=== PATIENT | male | born 1940 | race Caucasian/White ===

== ENCOUNTER → 2016-04-13 | Outpatient (CLI) | payer OTHER, BC | LOC: MMPC 11:11 | PROVIDERS: ATTEND Internal Medicine | DX: K22.70 Barrett's esophagus without dysplasia (principal); K21.9 Gastro-esophageal reflux disease without esophagitis; R13.14 Dysphagia, pharyngoesophageal phase; K22.719 Barrett's esophagus with dysplasia, unspecified; R29.898 Other symptoms and signs involving the musculoskeletal system; R22.2 Localized swelling, mass and lump, trunk | CPT/HCPCS: 99214; G0463 ==

== ENCOUNTER → 2016-05-24 | Outpatient (CLI) | payer OTHER, BC ==
--- NOTE | 2016-05-24 11:36 | DI ---
XR ESOPHAGRAM,05/24/2016 9:11 AM: Clinical History: Dysphagia. Previous Exam: None at this facility. Findings: Multiple images from an esophagram are obtained, and demonstrate normal course and caliber of the eso phagus. There is some irregularity of the esophagus with some poor motility. There is also delayed pa ssage through the gastroesophageal junction. The patient was unable to tolerate crystals and therefor e, the upper stomach was not well evaluated. There is no evidence of Zenker's diverticulum. There was some enlargement of the performed sinuses wo rse on the left than on the right. There was some reflux seen during the exam to the level of the midesophagus. A pacemaker was noted. The lungs appear clear. There were some mild degenerative changes of the cervi jesse spine. Impression: 1. No evidence of Zenker's diverticulum. 2. Patulous bilateral performed sinuses worse on the left than the right. 3. Presbyesophagus. 4. Slight delayed passage of the distal esophageal sphincter most consistent with patient's history o f peptic strictures.
== END ==
LOC: RAD 09:07
PROVIDERS: ATTEND Internal Medicine Gastroenterology
DX: R13.10 Dysphagia, unspecified (principal)
CPT/HCPCS: 74220

== ENCOUNTER → 2016-08-16 | Outpatient (CLI) | payer OTHER, BC | LOC: MMPC 11:11 | PROVIDERS: ATTEND Internal Medicine | DX: I10 Essential (primary) hypertension (principal); K21.9 Gastro-esophageal reflux disease without esophagitis; R13.14 Dysphagia, pharyngoesophageal phase; I25.2 Old myocardial infarction; Z98.1 Arthrodesis status; Z95.1 Presence of aortocoronary bypass graft; Z95.0 Presence of cardiac pacemaker | CPT/HCPCS: 99213; G0463 ==

== ENCOUNTER 2017-03-21 05:42 | Observation (INO) ==
[2017-03-21] MEDS ORDERED: Lactated Ringers 1,000 ML PRIMARY IV ONE (05:57)
[2017-03-21] MEDS ORDERED: LIDOCAINE W/ SODIUM BICARB 0.5 ML SYR ONE (05:57)
[2017-03-21] MEDS ORDERED: ceFAZolin Inj 2gm (Premix) 2 GM/50 ML BAG IV ONE ×2 (05:57→08:00)
[2017-03-21] MEDS ORDERED: Lactated Ringers 1,000 ML PRIMARY IV SCH (06:00)
[2017-03-21] MEDS ORDERED: LIDOCAINE W/ SODIUM BICARB 0.5 ML SYR SUBD ONE (06:00)
[2017-03-21] MEDS ORDERED: LIDOCAINE 2%/ EPI 1:200,000 - 20 ML VIAL ONE (07:14)
[2017-03-21] MEDS ORDERED: fentaNYL Inj 250 MCG/5 ML VIAL ONE (07:15)
[2017-03-21] MEDS ORDERED: BUPivacaine Inj 0.5% PF (5mg/ml) 30ml vial ONE (07:15)
[2017-03-21] MEDS ORDERED: MIDAZOLAM 5 MG/1 ML ONE (07:15)
--- NOTE | 2017-03-21 07:36 | CRNA.PROCE ---
Nerve Block Documentation - - Type of Nerve Block Used: Right Interscalene Block Position for Nerve Block: Supine Moniters Used During Block: EKG, SPO2, NIBP Oxygen Supplemented: Yes Sedation Used - Enter Amount in Comment Field [ANES.SEDAT]: Midazolam (mg): Yes (2mg), Fentanyl (mcg): Yes (100mcg) Skin Prep Used: ChloroPrep Draped: No Technique: Nerve Stimulator Nerve Block Needle Used: Metatomix 50 mm Stimulation Hz: 2 Stimulation Staring mA: 1.2 Stimulation Ending mA: 0.4 Local Anesthetic - Enter Amt in Comment Field [ANES.LOCNB]: 0.5 % Bupivicaine with Epinephrine 1:200,000 (mL): Yes (20ml), 2 % Xylocaine with Epinephrine 1: 200,000 (mL): Yes (20ml) Additives to Nerve Blocks: Dexamethasone (mg): Yes (8mg(2ml)) - - PreOp Block : Time In: 07:20 PreOp Block : Time Out: 07:35 Anesthesia Time - Other Weight: 58.06 kg Height: 5 ft 2 in Body Mass Index (BMI): 23.3
[2017-03-21] MEDS ORDERED: PROPOFOL 10 MG/1 ML (200 MG/20 ML) VIAL IV ONE (07:39)
[2017-03-21 07:40] LABS: BLOOD UREA NITROGEN 18 mg/dL (7-22)
[2017-03-21] MEDS ORDERED: BUPivacaine Inj 0.5% PF (5mg/ml) 30ml vial INFIL SCH ×2 (08:00→11:45)
[2017-03-21] MEDS ORDERED: ePHEDrine Inj 50 MG/ML AMP ONE (08:27)
--- NOTE | 2017-03-21 08:52 | EKG ---
[address] [address] Measurements Intervals [place] Rate: 62 P: 110 WA: 258 QRS: 229 QRSD: 148 T: -45 QT: 427 QTc: 433 Interpretive Statements ELECTRONIC ATRIAL PACEMAKER WITH VPCS MARKED RIGHT AXIS DEVIATION [QRS AXIS > 100] INTRAVENTRICULAR CONDUCTION DELAY ANTERIOR MYOCARDIAL INFARCTIO Compared to ECG 03/10/2017 10:50:27 no significant change Electronically Signed On 03-21-17 14:08:30 MST by Maurilio Choudhary [email or web address]
[2017-03-21] MEDS ORDERED: BUPivacaine Inj 0.25% PF - 10ml vial ONE (10:03)
[2017-03-21] MEDS ORDERED: Sodium Chloride 0.9% vial 10 ML ONE (10:15)
--- NOTE | 2017-03-21 10:45 | CRNA.PROGR ---
Anesthesia Recovery Phase I - Post Anesthesia Evaluation Patient's Condition on Arrival in Phase I: Stable Pain Level: 0
[2017-03-21] MEDS ORDERED: NORMAL SALINE 10 ML SYRINGE FLUSH IVP PRN ×2 (10:50→12:04)
[2017-03-21] MEDS ORDERED: HYDROmorphone 2 MG/1 ML IVP PRN (10:50)
[2017-03-21] MEDS ORDERED: ONDANSETRON 4 MG/2 ML VIAL IVP PRN ×2 (10:50→12:04)
--- NOTE | 2017-03-21 10:50 | CRNA.PROGR ---
Anesthesia Time - - Start date: 03/21/17 End date: 03/21/17 - Procedure/Recovery Time Anesthesia : Time In: 07:54 Anesthesia : Time Out: 10:43 Anesthesia : Total Time: 169 - Block Time PreOp Block : Time In: 07:20 PreOp Block : Time Out: 07:35 PreOp Block : Total Time: 15 - Total Anesthesia Time Total Anesthesia Time (minutes): 184 - Other Weight: 58.06 kg Height: 5 ft 2 in Body Mass Index (BMI): 23.3 Physical Status: P2 Anesthesia Type: General Anesthesia : LMA
--- NOTE | 2017-03-21 11:02 | ORTHO.OP ---
Surgery Date: 03/21/17 Preoperative Diagnosis: Full-thickness large rotator cuff tear right shoulder # 2 impingement syndrome Postoperative Diagnosis: Same Procedure: Repair rotator cuff tear right shoulder #2 subacromial decompression bursectomy Surgeon: Inge Mckenzie MD Resident Care Supervisor: RODRIGO Aguilar Anesthesia Provider: Kurtis Boucher CRNA Anesthesia Type: General Estimated Blood Loss (mL): 30 Fluids: 1800 mL crystalloid Pathology: None Findings: Large retracted full-thickness cuff tear supra and infraspinatus tendons Complications: None Operative Summary: Extubated and taken to recovery room in stable condition.
[2017-03-21] MEDS ORDERED: MORPHINE SULFATE 2 MG/1 ML IVP PRN (12:04)
[2017-03-21] MEDS ORDERED: HYDROcodone-APAP 7.5 MG-325 MG TABLET PO PRN (12:04)
[2017-03-21] MEDS ORDERED: LIDOCAINE HCL 2 % 10 ML JELLY URO-JECT TOPICAL PRN (12:04)
[2017-03-21] MEDS ORDERED: MORPHINE SULFATE 2 MG/1 ML IV PRN (12:12)
[2017-03-21] MEDS ORDERED: MORPHINE SULFATE 4 MG/1 ML IV PRN (12:12)
[2017-03-21] MEDS ORDERED: MORPHINE SULFATE 10 MG/1 ML IV PRN (12:12)
--- NOTE | 2017-03-21 12:42 | PDOC ---
HPI - History of Present Illness History of Present Illness: This very nice 76-year-old gentleman who is admitted for right rotator cuff repair he is status post surgery was called by orthopedic surgery to admit the patient overnight for observation and considering his history of coronary artery disease patient is stable has no chest pain no nausea no vomiting and has no other complaints Past Medical History Medical History: Coronary artery disease, pacemaker, hypertension, hypercholesterolemia, GERD Surgical History: Right rotator cuff repair Tobacco Use: Former Smoker In the Past 12 Months, Have Used or Abuse Any of the Following Substance: None Medication / Allergies Home Medications: Home Medications Medication Instructions Recorded Confirmed Type enalapril maleate 5 mg tablet 5 mg PO DAILY #90 tab 01/23/17 03/21/17 Rx simvastatin 20 mg tablet 20 mg PO QHS #90 tab 01/23/17 03/21/17 Rx aspirin 81 mg tablet,delayed 81 mg PO DAILY tab 02/15/17 03/21/17 History release carvedilol 6.25 mg tablet 6.25 mg PO BID tab 02/15/17 03/21/17 History omeprazole 40 mg capsule,delayed 40 mg PO BID cap 03/14/17 03/21/17 History release Allergies/Adverse Reactions: Allergies 3 Allergy/AdvReac Type Severity Reaction Status Date / Time No Known Allergies Allergy Verified 03/21/17 12:06 Review of Systems - Review of Systems All Systems: Reviewed & No Additional Complaints Except as Stated - Respiratory Respiratory: DENIES: Negative System Review, Cough, Sputum, Dyspnea At Rest, Dyspnea with Exertion, Pleuritic Pain, Hemoptysis, Wheezing, Other, See HPI - Cardiovascular Cardiovascular: DENIES: Negative System Review, Chest Pain, Edema, Syncope, Palpitations, Orthopnea, Paroxysmal Nocturnal Dyspnea, Other, See HPI - Gastrointestinal Gastrointestinal / Abdominal: DENIES: Negative System Review, Nausea, Vomiting, Diarrhea, Constipation, Abdominal Pain, Bloody Stool, Poor Appetite, Heartburn, Regurgitation, Bloating, Lactose Intolerance, Melena, Bright Red Blood per Rectum, Other, See HPI Exam - Vitals Vital Signs: Vital Signs Temperature 97.8 F Pulse Rate 69 Respiratory Rate 17 Blood Pressure [Left Arm] 181/85 Blood Pressure 136/78 Pulse Ox 100 Oxygen Flow Rate 2 Oxygen Delivery Method Nasal Cannula Height 5 ft 2 in Weight 128 lb - General General Appearance: No Acute Distress, Cooperative - Head Head Exam: Normal Inspection, Normocephalic, Atraumatic - Eye Eye Exam: POSITIVE: Normal Appearance, PERRL, EOMI, No Scleral Icterus - Respiratory Respiratory Exam: POSITIVE: Clear to Auscultation - Bilaterally, Breathing Non Labored, Normal To Percussion, Normal to Percussion and Palpation - Cardiovascular Cardiovascular Exam: POSITIVE: RRR, No Murmur, No Clicks, No Gallops, No Rubs, PMI Non-Displaced - GI/Abdominal GI/Abdominal Exam: POSITIVE: Normal Bowel Sounds, Non Tender, Non Distended, Soft, No Masses, No Hepatomegaly, No Splenomegaly, No Organomegaly - Extremities Extremities Exam: POSITIVE: Normal Inspection, Full ROM, Normal Capillary Refill , No Clubbing Present, No Edema Present, No Cyanosis Present, Negative Jet's sign, Dosalis Pedis Pulses - Stong & Regular Additional Extremities Exam Details: Right arm in the sling Results - Labs CBC and BMP: 03/21/17 07:25 Assessment and Plan - Patient Problems (1) S/P rotator cuff repair Current Visit: Yes Status: Acute Comment: Defer to orthopedic surgery Code(s): Z98.890 - Other specified postprocedural states (2) CAD (coronary artery disease) Current Visit: No Status: Chronic Comment: Continue current home medication discussed with nursing and pharmacy, enalapril, simvastatin carvedilol Code(s): I25.10 - Atherosclerotic heart disease of [place] coronary artery without angina pectoris Qualifiers: (3) Pacemaker Current Visit: No Status: Chronic Onset Date: 01/13/16 Comment: Stable Code(s): Z95.0 - Presence of cardiac pacemaker
[2017-03-21] MEDS: OMEPRAZOLE 40 MG CAPSULE PO SCH ×2 (13:34→20:35)
[2017-03-21] MEDS: CARVEDILOL 6.25 MG TABLET PO SCH ×2 (13:34→20:34)
[2017-03-21] MEDS: ENALAPRIL 10 MG TABLET PO SCH (13:35)
[2017-03-21] MEDS ORDERED: Sodium Chloride 0.9% 0 ML IV ONE (15:42)
[2017-03-21] MEDS ORDERED: ceFAZolin Inj 2 GM in Sodium Chloride 0.9% 100 ML IV SCH (16:00)
[2017-03-21] MEDS: ceFAZolin Inj 2gm (Premix) 2 GM/50 ML BAG IV SCH ×2 (16:29→23:58)
[2017-03-21] MEDS ORDERED: OMEPRAZOLE 40 MG CAPSULE PO SCH (21:00)
[2017-03-21] MEDS ORDERED: CARVEDILOL 6.25 MG TABLET PO SCH (21:00)
[2017-03-21] MEDS ORDERED: Simvastatin Tab 20 MG TAB PO SCH (21:00)
[2017-03-22 05:20] VITALS: O2SAT 93
[2017-03-22] MEDS: OMEPRAZOLE 40 MG CAPSULE PO SCH (06:59)
--- NOTE | 2017-03-22 07:57 | ORTHO.PROG ---
Last Taken Vital Signs: Vital Signs - Last Taken Temperature 97.5 F 03/22/17 05:00 Pulse Rate 71 03/22/17 07:00 Respiratory Rate 18 03/22/17 06:40 Blood Pressure 147/72 03/22/17 05:00 Pulse Ox 93 03/22/17 05:00 Subjective: Patient sitting up in bed eating breakfast. Does not seem to be having much pain. His brace is not fitting correctly. We'll try to get that fixed. Objective: Vital signs are stable patient is afebrile. Right upper extremity dressing is clean and dry. Neurovascular exam intact. Assessment: Impression: Rotator cuff repair. Postoperative day 1. Seems to be doing well. Plan: Plan: Is to take his pain pump out on Monday. I will arrange to do it myself. Probable discharge today by Dr. Tomlin.
[2017-03-22] MEDS ORDERED: ENALAPRIL 10 MG TABLET PO SCH ×2 (09:00→12:45)
[2017-03-22] MEDS: ENALAPRIL 10 MG TABLET PO SCH (09:12)
[2017-03-22] MEDS: CARVEDILOL 6.25 MG TABLET PO SCH (09:15)
--- NOTE | 2017-03-22 09:46 | CRNA.PROGR ---
Anesthesia Note - Progress Notes Anesthesia Progress Note: Post OP Anesthesia Note Pt is laying in bed, complaining of mild nausea, has not had much of appetite. He also is having trouble getting urine to flow, i suspect is residual from the SAB. Patient states that his pain is well under control. Current VS are stable. Vital Signs - Last Taken Temperature 97.5 F 03/22/17 05:00 Pulse Rate 71 03/22/17 07:00 Respiratory Rate 18 03/22/17 06:40 Blood Pressure 147/72 03/22/17 05:00 Pulse Ox 93 03/22/17 05:00
--- NOTE | 2017-03-22 10:01 | DCSUMMARY ---
Hospitalization Summary Hospital Course: Final Discharge Diagnosis: Current Visit Problems Problem Status Onset Code S/P rotator cuff repair Acute Z98.890 Diagnostic Data, Laboratory Data, and Procedures of Signifigance: History and Physical pertinent to Admission: Course of Hospitalization: This is a very nice 76-year-old gentleman with past medical history of A. fib and hypertension he was admitted overnight for observation to make sure the telemetry and his A. fib and hypertension with stay stable after the rotator cuff repair. The patient did great and no changes on telemetry no chest pain nausea vomiting I discussed the case with the orthopedic surgery he will be discharged home in stable and improved condition with his usual medication and a prescription for some pain control Dr. Mckenzie will go to his house to take out the pain pump that he has an. Patient understands and agrees the above plan On the date of discharge, the patient was examined: Gen.: No acute distress, alert, nontoxic Heart: Regular rate and rhythm, no murmurs, clicks, gallops, or rubs Lungs: Clear to auscultation bilaterally, breathing is nonlabored Abdomen/GI: Normal tones on auscultation, soft, nontender, nondistended Musculoskeletal/extremities: No clubbing, cyanosis, or edema Vitals reviewed and are listed below Vital Signs (24 hrs) Temp Pulse Pulse Resp Resp BP BP 03/22/17 07:00 71 03/22/17 06:40 18 03/22/17 05:00 97.5 F 73 20 147/72 03/22/17 03:00 64 03/22/17 00:36 97.2 F 60 20 129/64 03/21/17 23:00 65 03/21/17 20:30 97.6 F 75 22 123/69 03/21/17 19:00 66 03/21/17 17:00 169/86 03/21/17 16:50 97.6 F 60 16 188/97 03/21/17 14:06 70 03/21/17 13:00 97.5 F 69 18 182/88 03/21/17 12:05 97.5 F 69 18 182/88 03/21/17 11:30 96.9 F 70 20 175/90 03/21/17 11:15 67 18 165/78 03/21/17 11:06 97.8 F 64 16 150/79 03/21/17 11:04 69 10 L 03/21/17 11:02 97.1 F 66 15 136/78 03/21/17 11:00 63 24 03/21/17 10:58 68 23 144/78 03/21/17 10:56 67 16 03/21/17 10:54 72 16 03/21/17 10:52 72 24 140/77 03/21/17 10:50 70 27 H 03/21/17 10:48 74 24 144/77 03/21/17 10:46 71 15 144/77 03/21/17 10:42 97.4 F 81 27 H 158/84 Pulse Ox 03/22/17 07:00 03/22/17 06:40 03/22/17 05:00 93 03/22/17 03:00 03/22/17 00:36 90 03/21/17 23:00 03/21/17 20:30 91 03/21/17 19:00 03/21/17 17:00 03/21/17 16:50 93 03/21/17 14:06 03/21/17 13:00 96 03/21/17 12:05 96 03/21/17 11:30 98 03/21/17 11:15 98 03/21/17 11:06 99 03/21/17 11:04 97 03/21/17 11:02 97 03/21/17 11:00 97 03/21/17 10:58 97 03/21/17 10:56 97 03/21/17 10:54 98 03/21/17 10:52 98 03/21/17 10:50 98 03/21/17 10:48 98 03/21/17 10:46 97 03/21/17 10:42 97 Assessment and Plan: 1. As per discharge assessments above 2. Disposition: Home 3. Condition on discharge, stable and improved. 4. Diet: regular diet 5. Activities: resume normal activities 6. Follow-Up: 1. PCP Dr. Mckenzie and amps 2. 7. Medications at the Time of Discharge: Home Medications Medication Instructions Recorded Confirmed Type enalapril maleate 5 mg tablet 5 mg PO DAILY #90 tab 01/23/17 03/21/17 Rx simvastatin 20 mg tablet 20 mg PO QHS #90 tab 01/23/17 03/21/17 Rx aspirin 81 mg tablet,delayed 81 mg PO DAILY tab 02/15/17 03/21/17 History release carvedilol 6.25 mg tablet 6.25 mg PO BID tab 02/15/17 03/21/17 History oxycodone-acetaminophen 7.5 mg-325 See Label Instructions PO Q6H PRN 03/22/17 Rx mg tablet #45 tab 3 Generic Name Dose Route Start Last Admin Trade Name Freq PRN Reason Stop Dose Admin Hydrocodone Bitart/Acetaminophen 1 - 2 tab 03/21/17 12:04 [place] 7.5/325 Tab PO Q4H PRN Pain Bupivacaine HCl 1,500 mg 03/21/17 11:45 Sensorcaine Inj 0.5% Pf INFIL .Per Pump GIORGIO Protocol Carvedilol 6.25 mg 03/21/17 12:45 03/22/17 09:15 Coreg PO 6.25 mg BID GIORGIO Administration Enalapril Maleate 5 mg 03/21/17 13:30 03/22/17 09:12 Vasotec PO 5 mg DAILY GIORGIO Administration Lidocaine HCl 10 ml 03/21/17 12:04 Xylocaine Uro-Ject 2% TOPICAL ONCE PRN Discomfort catheter insertion Morphine Sulfate 1 - 2 mg 03/21/17 12:12 Morphine Inj IV Q2H PRN MODERATE TO SEVERE PAIN Morphine Sulfate 3 - 4 mg 03/21/17 12:12 Morphine Inj IV Q2H PRN MODERATE TO SEVERE PAIN Morphine Sulfate 5 mg 03/21/17 12:12 Morphine Inj IV Q2H PRN MODERATE TO SEVERE PAIN Omeprazole 40 mg 03/21/17 12:45 03/22/17 06:59 Prilosec PO 40 mg BID@0630,1700 GIORGIO Administration Ondansetron HCl 4 mg 03/21/17 12:04 Zofran Inj IVP Q4H PRN NAUSEA / VOMITING Simvastatin 20 mg 03/21/17 21:00 03/21/17 20:34 Zocor PO 20 mg BEDTIME GIORGIO Administration Sodium Chloride 5 - 20 ml 03/21/17 12:04 03/21/17 23:58 Saline Flush IVP 10 ml BID PRN Administration Flush 8. Time, care, counseling and coordination of care for this discharge is greater than 30 minutes. Exam - Vitals Vital Signs: Vital Signs Temperature 97.5 F Temperature Source Temporal Artery Scan Pulse Rate [Pulse Oximeter] 73 Pulse Rate 71 Respiratory Rate [Right 18 shoulder] Respiratory Rate 20 Blood Pressure [Left Arm] 147/72 Blood Pressure 175/90 Pulse Ox 93 Oxygen Flow Rate 1 Oxygen Delivery Method Room Air Height 5 ft 2 in Weight 133 lb 12.8 oz Patient Problems - Patient Problem List (1) S/P rotator cuff repair Current Visit: Yes Status: Acute Code(s): Z98.890 - Other specified postprocedural states Category: Surgical (2) CAD (coronary artery disease) Current Visit: No Status: Chronic Comment: Post 5 vessel bypass 2003 with pacemaker implant 2016. Denies exertional chest pain but does have HAYS with limited exercise related to frequent falls. Code(s): I25.10 - Atherosclerotic heart disease of [place] coronary artery without angina pectoris Qualifiers: Category: Medical (3) Pacemaker Current Visit: No Status: Chronic Onset Date: 01/13/16 Code(s): Z95.0 - Presence of cardiac pacemaker Category: Medical
--- NOTE | 2017-03-22 10:36 | CRNA.PROGR ---
Anesthesia Note - Progress Notes Anesthesia Progress Note: Post OP Progress note Pt is sitting up at bed side dressed in regular clothes. He states that his pain is well under control and it appears as though the ISB has resolved and the pain pump is controlling pain well. He is having some problems tolerating swallowing , but, this is related to a preexisting esophogeal stricture. Pt tolerated the anesthetic well. Current VS are stable. Vital Signs - Last Taken Temperature 97.5 F 03/22/17 05:00 Pulse Rate 71 03/22/17 07:00 Respiratory Rate 18 03/22/17 06:40 Blood Pressure 147/72 03/22/17 05:00 Pulse Ox 93 03/22/17 05:00
[2017-03-22 10:57] VITALS: BP 172/91; RESP 20; TEMP 97.3
--- NOTE | 2017-03-23 09:19 | OT AM DAY ---
Diagnosis : Right RTC Infra/Supra/PEDRITO AM - Occupational Therapy O: The patient was instructed in activities of daily living including dressing and bathing, as well as shoulder do's and don'ts. The patient was issued a shoulder sling and instructed in its proper use and care. P: No further therapy is indicated at this time. The patient will begin outpatient physical therapy. MTDD
== END 2017-03-22 10:45 | disposition home or self-care (01) ==
LOC: OR 05:42 → MED/SURG 05:42
PROVIDERS: ADMIT Orthopaedic Surgery; ATTEND Internal Medicine

== ENCOUNTER 2018-07-25 13:50 | Inpatient (IN) ==
--- NOTE | 2018-07-25 13:57 | PDOC ---
Gen Adult / Medical Screen HPI - General Chief Complaint: General Medical Stated Complaint: not eating for 4 months/unable to keep food down Date Seen by Provider: 07/25/18 Time Seen by Provider: 13:57 Source: POSITIVE: Patient, RN/MD Exam Limitations: POSITIVE: No limitations Nurse's Notes Reviewed & Considered: Yes - Indicators Severe Pain (Greater than 5/10 Reported): No Chest or Abdominal Pain: No Inability to Walk: No Pt Reports Active High Risk Cond. (TB/Hepatitis/HIV/Chemo): No Abnormal Mental Status: No - History of Present Illness Initial Comments: This is a well-developed, anorexic, 77-year-old male, who was sent to the emergency room by his primary care provider because of recent 50 pound weight loss. Over the last 4 months patient has lost an excess of 50 pounds without dieting. He does have dysphagia and barium swallow study shows some sort of soft tissue mass in the hypopharynx. ENT review stated on clinical exam no mass was evident. CT of his head performed in the last few months with negative for acute intracranial abnormalities. CT scan of his cervical spine showed what appeared to be a soft tissue mass of the hypopharynx. CT scan of his chest showed no acute abnormalities. Patient states that he has a very difficult time eating or drinking with multiple episodes of aspiration pneumonia and inability to swallow his medications. He states that just this last week he took his medications 1 morning and the next morning he coughed up one of the pills. Presently he has a low-grade fever but denies headache, no runny nose, no cough, no shortness of breath, no nausea vomiting or diarrhea, no hematuria dysuria, no myalgias or arthralgias. In 2013 patient wait 195 pounds. He states at home today he weighed 98 pounds. Timing: REPORTS: Unknown Duration: Unknown Similar Symptoms Previously: Yes Recent Care Received: REPORTS: Recently Seen, Treated by MD Any Prior Injuries Related to Current Complaint?: No - Patient Home Medications Home Medications: Home Medications carvedilol 6.25 mg tablet 6.25 mg PO BID #180 tab 05/29/18 esomeprazole magnesium 20 mg capsule,delayed release 40 mg PO QDAY #180 cap 05/29/18 aspirin 81 mg tablet,delayed release 81 mg PO QDAY tab 05/31/18 enalapril maleate 5 mg tablet 5 mg PO QDAY tab 05/31/18 cholecalciferol (vitamin D3) 1,000 unit tablet 1,000 unit PO QDAY #30 tab 06/08/18 mecobalamin (vitamin B12) 1,000 mcg disintegrating tablet,sublingual 1,000 mcg SL QDAY #90 tab 06/11/18 gabapentin 100 mg capsule 100 mg PO QDAY #180 cap 06/25/18 - Patient Allergies Allergies/Adverse Reactions: Allergies Allergy/AdvReac Type Severity Reaction Status Date / Time No Known Allergies Allergy Verified 07/25/18 18:02 Past Medical History - heen HEENT History: Cataracts Additional HEENT History: full upper dentures Cardiovascular History: Hypertension, Previous OH, CAD, Pacemaker Respiratory History: Denies History Gastrointestinal History: GERD, Other (please comment) Additional Gastrointestinal History: Dysphagia, gall bladder removed Genitourinary History: Kidney Stones Endocrine History: Denies History Musculoskeletal History: Arthritis, Back Pain, Osteoarthritis, Other (please comment) Prosthesis or Implant: Yes Additional Musculoskeletal History: LEFT FOOT DROP, history of a lot of falls, c/o tailbone pain, 3 johnson in left foot Neurological History: Denies History Blood Disorders: Denies History Psychiatric History: Denies History Cancer History: Denies History History of MDRO: No In the Past 12 Months, Have Used or Abuse Any Substance: None Type / Date of Surgery: CABG X5/ Pacemaker insertion/ shawn/ Lumbar fusion Anesthesia Reactions: No Significant Family History: Cancer Additional Family History: father had OH ROS - Limitations ROS Limitations: No Limitations Constitution: REPORTS: Fever Cardiovascular: REPORTS: Denies Cardiac Symptoms Respiratory: REPORTS: Denies Resp Symptoms Neurological: REPORTS: Denies Neuro Symptoms Gastrointestinal: REPORTS: Denies GI Symptoms Endocrine: REPORTS: Denies Symptoms Musculoskeletal: REPORTS: Denies MS Symptoms Genitourinary: REPORTS: Denies Symptoms Eyes: REPORTS: Denies Symptoms ENT: REPORTS: Denies Symptoms Skin: REPORTS: Denies Skin Symptoms Lympathic: REPORTS: Denies Lympathic Symptoms Immunologic: POSITIVE: Denies Symptoms Psychiatric: POSITIVE: Denies Psych Symptoms Gen Adult/Medical Screen Exam - General Appearance General Appearance: POSITIVE: Alert, Cooperative, No Acute Distress, No Evidence of Trauma - HEENT HEENT: POSITIVE: Head Inspection Nml, Eyes Inspection Nml, Ears Inspection Nml, Nose Inspection Nml, Oral/Dental Inspect. Nml, Pharynx Inspect. Nml, PERRL, EOMI - Pupils Pupil Size: 5 mm: Bilateral - Neck Neck: POSITIVE: Normal Inspection - Respiratory Respiratory: POSITIVE: No Respiratory Distress, Breath Sounds Normal, Chest Non- Tender - Cardiovascular Cardiovascular: POSITIVE: Regular Rate & Rhythm, No Murmur, No Gallop, PMI Norm al - Abdomen Abdomen: Soft: (All Quadrants), Normal Bowel Sounds: (All Quadrants), Denies Tenderness: (All Quadrants), No Splenomegaly: (All Quadrants), No Hepatomegaly: (All Quadrants), No Guarding: (All Quadrants), No Rebound: (All Quadrants), No Palpable Pulse: (All Quadrants), No Palpabale Mass: (All Quadrants), No Distention: (All Quadrants), No Rigidity: (All Quadrants) Additional Abdominal Details: Patient is very thin with no abdominal fat present no masses are palpated no tenderness is noted. - Back Back: POSITIVE: Normal Inspection - Neurological / Psychological Mental Status: POSITIVE: Mood Normal, Affect Normal Orientation: POSITIVE: Oriented x 3 - Skin Skin: POSITIVE: Normal Color, Warm, Dry, No Rash - Extremities Extremity: Non-Tender: (All Extremities), Normal ROM: (All Extremities), Normal Inspection: (All Extremities), Pelvis Stable: (All Extremities) Procedures - Laceration/Wound Repair Did patient have a laceration repair: No Gen Adlt/Medical Scrn Progress - Results Reviewed by me Xrays/CTs/US Reviewed by me: Yes Discussed with Radiologist: Yes Lab Results Reviewed by Me: Yes CBC and BMP: 07/25/18 14:07 07/25/18 14:07 Lab Results:: Laboratory Results 07/25/18 07/25/18 07/25/18 14:07 14:07 14:07 WBC 6.45 RBC 4.02 L Hgb 13.2 L Hct 37.1 L MCV 92.3 H MCH 32.8 H MCHC 35.6 RDW Std Deviation 48.7 RDW Coeff of Ignacio 14.9 H Plt Count 270 MPV 10.3 Neutrophils % (Manual) 68 Band Neutrophils % 0 Lymphocytes % (Manual) 29 Monocytes % (Manual) 3 Eosinophils % (Manual) 0 Basophils % (Manual) 0 Metamyelocytes % Not Reportable Myelocytes % Not Reportable Promyelocytes % Not Reportable Blast Cells Not Reportable WBC Morphology Comment Normal morphology Plt Morphology Comment Normal morphology RBC Morph Comment Normal morphology ESR 11 Sodium 140 Potassium 3.1 L Chloride 101 Carbon Dioxide 26 Anion Gap 13 BUN 13 Creatinine 0.6 L Estimated GFR Goat Driver BUN/Creatinine Ratio 21.66 H Glucose 106 Calculated Osmolality 289.0 Calcium 8.9 Magnesium 1.6 Total Bilirubin 1.2 GGT 23 AST 34 ALT 42 Alkaline Phosphatase 66 C-Reactive Protein 1.1 H Total Protein 7.0 Albumin 3.7 Globulin 3.3 Albumin/Globulin Ratio 1.10 L Amylase 73 Lipase 114 TSH 1.15 Ur Collection Type Urine Color Urine Clarity Urine pH Ur Specific [place] Urine Protein Urine Glucose (UA) Urine Ketones Urine Occult Blood Urine Nitrate Urine Bilirubin Urine Urobilinogen Ur Leukocyte Esterase Ur Culture Indicated? 07/25/18 16:52 WBC RBC Hgb Hct MCV MCH MCHC RDW Std Deviation RDW Coeff of Ignacio Plt Count MPV Neutrophils % (Manual) Band Neutrophils % Lymphocytes % (Manual) Monocytes % (Manual) Eosinophils % (Manual) Basophils % (Manual) Metamyelocytes % Myelocytes % Promyelocytes % Blast Cells WBC Morphology Comment Plt Morphology Comment RBC Morph Comment ESR Sodium Potassium Chloride Carbon Dioxide Anion Gap BUN Creatinine Estimated GFR BUN/Creatinine Ratio Glucose Calculated Osmolality Calcium Magnesium Total Bilirubin GGT AST ALT Alkaline Phosphatase C-Reactive Protein Total Protein Albumin Globulin Albumin/Globulin Ratio Amylase Lipase TSH Ur Collection Type Clean catch urine Urine Color Other Urine Clarity Clear Urine pH 5.5 Ur Specific [place] 1.010 Urine Protein Trace Urine Glucose (UA) Negative Urine Ketones Trace A Urine Occult Blood Negative Urine Nitrate Negative Urine Bilirubin Moderate Urine Urobilinogen >8.0 Ur Leukocyte Esterase Negative Ur Culture Indicated? Culture not set - Patient's Progress Pain Medication Addressed: POSITIVE: Not Applicable Status: POSITIVE: Improved MDM / ED Course: Patient was evaluated, an IV started, blood drawn and sent to the lab for studies, CT examination of his chest and abdomen were obtained. Findings: CBC shows white count of 6.45, hemoglobin of 13.2, hematocrit of 37.1, platelets of 270, 0% bands present. CRP is 1.1. CMP shows potassium low at 3.1 and creatinine low at 0.6, the remainder the panel is normal. Magnesium is normal at 1.6. Amylase is 73 and lipase is 114. TSH is 1.15. Urinalysis is negative. Chest x-ray shows no acute cardiopulmonary decompensation. CTA of the chest shows no pulmonary embolism present and ground glass nodularity present. CT of the abdomen shows no acute intra-abdominal abnormalities. Assessment: #1 dysphagia. #2 hypokalemia. Plan: Patient being admitted by the hospitalist. I have discussed patient with Dr. Per sylvester didn't here who will be seeing the patient in consultation for possible PEG tube placement. - Consult Consult (If Yes, Name of Consulting MD & Time Called): Yes (Dr. Ji) Consulting MD will see pt:: POSITIVE: [facility] [place] Admit Counseled: POSITIVE: Patient, RE: Lab Results, RE: Radiology Results, RE: DX, RE: Need for F/U Patient Care Time - Estimated PCT Patient Care Time (In Minutes): 45 Vital Signs - Recent Vital Signs Vital Signs: Vital Signs (Last 8 hours) Temp Pulse Resp BP Pulse Ox 07/25/18 18:01 72 18 07/25/18 13:50 99.2 F 72 16 151/81 95 - VS Reviewed Vital Signs Reviewed: Yes Discharge Clinical Impression: Dysphagia, Hypokalemia Discharge Disposition: Admit to Inpatient Condition: Stable Date Decision to Admit to Inpatient: 07/25/18 Time Decision to Admit to Inpatient: 17:00
[2018-07-25] MEDS ORDERED: D5-LR 1,000 ML PRIMARY IV ONE (14:08)
[2018-07-25 14:17] LABS: Hematocrit [HCT] 37.1 % (42.0-52.0); Hemoglobin [HGB] 13.2 g/dL (14.0-18.0); MEAN CORPUSCULAR HEMOGLOBIN 32.8 PG (27-31); MEAN CORPUSCULAR HGB CONC 35.6 g/dL (33-37); MEAN CORPUSCULAR VOLUME 92.3 FL (80-90); MEAN PLATELET VOLUME 10.3 FL (7.4-12.2); RED BLOOD COUNT 4.02 10^6/uL (4.70-6.10)
[2018-07-25 14:25] LABS: BAND NEUTROPHILS % 0 % (0-10); BASOPHILS % (MANUAL) 0 % (0-1); EOSINOPHILS % (MANUAL) 0 % (0-8); MONOCYTES % (MANUAL) 3 % (0-12); NEUTROPHILS % (MANUAL) 68 % (50-80); PLATELET MORPHOLOGY COMMENT NORMAL MORPHOLOGY (NORM); RBC MORPHOLOGY COMMENT NORMAL MORPHOLOGY (NORM); WBC MORPHOLOGY COMMENT NORMAL MORPHOLOGY (NORM)
[2018-07-25 14:29] LABS: BLOOD UREA NITROGEN 13 mg/dL (7-22); BUN/CREATININE RATIO 21.66 (6-20); GAMMA GLUTAMYL TRANSPEPTIDASE 23 IU/L (8-78); LIPASE 114 IU/L (23-300); SERUM ALBUMIN 3.7 g/dL (3.5-4.8)
[2018-07-25 14:57] LABS: Erythrocyte Sediment Rate 11 MM/HR (0-15)
--- NOTE | 2018-07-25 15:16 | DI ---
XR CXR 1VW 07/25/2018 2:08 PM HISTORY: [facility] [place] ^fever Comparison: 05/31/2018. Findings: A single portable frontal view of the chest is submitted. The patient is status post median sternotomy. There is a 2-lead left chest cardiac device with wire tips projecting over the right atr ium and right ventricle. Surgical clips project over the right upper quadrant. Images demonstrate normal aeration without focal consolidation. There is a calcified granuloma in the right midlung. There is no large pneumothorax or pleural effusion. The cardiomediastinal silhouette is within normal limits with atheromatous calcifications in the arch of the tortuous thoracic aorta. The osseous structures are not significantly changed. Impression: No radiographic evidence of acute cardiopulmonary disease.
--- NOTE | 2018-07-25 15:30 | DI ---
CT CTA Chest Non-Coronary WWO 07/25/2018 2:08 PM History: [facility] [place] ^aspiration Comparison: Chest x-ray from earlier the same day. Procedure: CT angiography of the pulmonary arteries was performed after the administration of 65 mL o f Isovue intravenous contrast. Findings: There is normal opacification of the pulmonary arteries with no evidence of filling defect. Evaluation of the lungs demonstrates no dense consolidation, pneumothorax, or pleural effusion. Grou ndglass nodularity is noted in the right middle, right lower, and left lower lobes. No pulmonary nodu les are noted. There are calcified granulomata in the right and left upper lobes. There is diffuse br onchial wall thickening without endobronchial lesion. There is no mediastinal or hilar lymphadenopathy. The aorta and branch vessels demonstrate normal cou rse and caliber. There are atheromatous aortic and coronary artery calcifications. The patient is sta tus post median sternotomy. There is a left chest cardiac device with wire tips in the right atrium a nd right ventricle. Heart size is within normal limits with no pericardial effusion. The thyroid exhi bits normal CT morphology. The osseous structures are notable for age indeterminate compression deformity of the following verte bral bodies: T5, T7, T8, T11, L1. Multilevel degenerative disc disease is noted. There is no evidence of acute or healing rib fractures. Impression: 1. No main or segmental pulmonary embolism. 2. There is groundglass nodularity in the right middle, right lower, and left lower lobes with no den se consolidation, pneumothorax, or pleural effusion. This is a nonspecific finding with a broad diffe rential that includes aspiration, atypical pneumonia, and hypersensitivity pneumonitis.
--- NOTE | 2018-07-25 15:48 | DI ---
CT Abdomen/Pelvis W Contrast 07/25/2018 2:08 PM History: [facility] [place] ^50lbs wt loss Comparison: CT abdomen/pelvis 12/31/2005. Esophagram 07/03/2018. Technique: Imaging was performed with a multi-detector CT scanner. Data acquisition was obtained from the dome of the diaphragm through the pubic symphysis after the uneventful administration of 65 mL o f Isovue intravenous contrast material. Multiplanar reformations were performed. Findings: The patient is cachectic with minimal intraperitoneal fat which limits evaluation of the neva wel and mesentery. Enteric contrast is present in the distribution of the colon, most likely ingested during the patient's esophagram on 07/03/2018. This suggests slow transit of enteric contents. Hollow viscus organs demonstrate normal course and caliber within the limits of this exam. There is no free intraperitoneal air or fluid. No abdominopelvic lymphadenopathy is present within the limits of this exam. Surgical clips are noted in the right upper quadrant. There is normal CT appearance of the liver, adr enal glands, spleen, kidneys, and pancreas. Vascular structures are intact with atheromatous aortoili ac calcifications. There is no inguinal or abdominal wall hernia. There is compression deformity of L1. Osseous fusion of the posterior elements is noted from L2-S1. T here is grade 3 anterolisthesis of S1 on S2. Osseous central canal narrowing is noted at the L1 level and again at the S1/2 level. Impression: 1. The patient is cachectic with minimal intraperitoneal fat which limits evaluation of the bowel and mesentery. There is no CT evidence of acute intra-abdominal or pelvic pathology within the limits of this exam. Enteric contrast is present in the distribution of the colon, most likely ingested during the patient's esophagram on 07/03/2018. This suggests slow transit of enteric contents.
[2018-07-25 16:59] LABS: BILIRUBIN,URINE MODERATE (NEG); CLARITY,URINE CLEAR (CLEAR); COLOR,URINE Other (Y); GLUCOSE, URINE (UA) NEGATIVE (NEG); OCCULT BLOOD,URINE NEGATIVE (NEG); PH,URINE 5.5 (5.0-8.5); PROTEIN,URINE TRACE mg/dl (NEG); URINE SAMPLE TYPE CLEAN CATCH URINE; UROBILINOGEN,URINE >8.0 EU/dL (0.2)
--- NOTE | 2018-07-25 17:36 | CONSULT ---
Consult Note - Consult Consult Date: 07/25/18 Reason for Consult: PreOp Consulation : General Surgery Requesting Physician: Dr. Farrar Primary Care Provider: Catalina Baer MD - History of Present Illness History of Present Illness: This 77-year-old gentleman who is had a 45-50 pound weight loss. He had a modified barium swallow that shows that he cannot swallow solid are liquid foods. This is the reason for his weight loss. Patient has had no known reason for his inability to swallow. He has not aspirated though. Patient is on no blood thinners at this time. He is agreed to have a PEG tube placed. Past Medical History Medical History: Coronary artery disease, pacemaker, hypertension, hypercholesterolemia, GERD Surgical History: Right rotator cuff repair, cholecystectomy Tobacco Use: Former Smoker In the Past 12 Months, Have Used or Abuse Any of the Following Substance: None Medication / Allergies Home Medications: Home Medications Medication Instructions Recorded Confirmed Type carvedilol 6.25 mg tablet 6.25 mg PO BID #180 tab 05/29/18 07/25/18 Rx esomeprazole magnesium 20 mg 40 mg PO QDAY #180 cap 05/29/18 07/25/18 Rx capsule,delayed release aspirin 81 mg tablet,delayed 81 mg PO QDAY tab 05/31/18 07/25/18 History release enalapril maleate 5 mg tablet 5 mg PO QDAY tab 05/31/18 07/25/18 History cholecalciferol (vitamin D3) 1,000 1,000 unit PO QDAY #30 tab 06/08/18 07/25/18 Rx unit tablet mecobalamin (vitamin B12) 1,000 1,000 mcg SL QDAY #90 tab 06/11/18 07/25/18 Rx mcg disintegrating tablet,sublingual gabapentin 100 mg capsule 100 mg PO QDAY #180 cap 06/25/18 07/25/18 Rx Allergies/Adverse Reactions: Allergies Allergy/AdvReac Type Severity Reaction Status Date / Time No Known Allergies Allergy Verified 07/25/18 14:08 Results - Labs CBC and BMP: 07/25/18 14:07 07/25/18 14:07 Exam - Vitals Vital Signs: Vital Signs Temperature 99.2 F Temperature Source Temporal Artery Scan Pulse Rate [Pulse Oximeter 72 Right] Respiratory Rate 16 Blood Pressure [Left Arm] 151/81 Pulse Ox 95 Oxygen Delivery Method Room Air Height 5 ft 2 in Weight 106 lb - GI/Abdominal GI/Abdominal Exam: POSITIVE: Normal Bowel Sounds, Non Tender, Non Distended, Soft Assessment and Plan - Patient Problems (1) Esophageal dysphagia Current Visit: No Status: Chronic Onset Date: 01/13/16 Code(s): R13.10 - Dysphagia, unspecified - Assessment / Plan Additional Assessment/Plan Details: At this point I think the patient is a candidate for PEG tube clear. When over the risk [place] a PEG tube. When over the potential complications of a PEG tube. He understands these will get this at the first available date
--- NOTE | 2018-07-25 18:15 | PDOC ---
HPI - History of Present Illness Date of Service: 07/25/18 Time of Service: 19:00 Chief Complaint: Losing weight and can not swallow food for 4 months History of Present Illness: This is 77 years old male with medical history significant for history of previous CABG in 2003, history of previous pacemaker insertion, hypertension he said he's been having problems swallowing for years maybe 5-10 years but progressively got worse the last 4 months he lost like 45 pounds, he said he can't swallow solid food and even liquids. He's been seen by Dr. Baer who ordered a CT of the neck which showed no pharyngeal or retropharyngeal mass identified, there is apparent asymmetry of the tongue but this can be positional it is better evaluated by visual inspection. He had the CT of the chest which showed old compression fractures and osteoporosis. On July 03 he had esophagogram which showed the patient unable to swallow thin barium without as piration multiple times. This apparently is secondary to mechanical processes other than presence of stenosis or esophageal lesion. Apparently the patient when he swallows he vomits according to him. He went for a follow-up today with Dr. Patterson from there she sent into the ER. He had CT of the chest and CT of the abdomen no new findings. The case was discussed with Dr. Andreina Escudero who discussed it with patient and suggested EGD and PEG tube insertion patient agreed. Patient was admitted to the hospital. Apart from symptoms of for swallowing difficulty, vomiting and weight loss he is denying other symptoms. There is no pain. He said his bowels is okay but it's not function him well b ecause he is not eating. He is having problems swallowing his pills also. Past Medical History Medical History: 1. Coronary artery disease with previous CABG in 2003. 2. History of hypertension. 3. History of pacemaker insertion. 4. History of compression fractures. 5. History of esophageal dilatation before. 6. History of [place] esophagus Surgical History: 1. Cholecystectomy. 2. History of previous back surgery. 3 . History of CABG Family History: Reviewed an Not Pertinent Past Social History: He used to smoke, used to drink quit in . No drugs. Lives in [facility]Note [facility] by himself. Tobacco Use: Former Smoker In the Past 12 Months, Have Used or Abuse Any of the Following Substance: None Medication / Allergies Home Medications: Home Medications Medication Instructions Recorded Confirmed Type carvedilol 6.25 mg tablet 6.25 mg PO BID #180 tab 05/29/18 07/25/18 Rx esomeprazole magnesium 20 mg 40 mg PO QDAY #180 cap 05/29/18 07/25/18 Rx capsule,delayed release aspirin 81 mg tablet,delayed 81 mg PO QDAY tab 05/31/18 07/25/18 History release enalapril maleate 5 mg tablet 5 mg PO QDAY tab 05/31/18 07/25/18 History cholecalciferol (vitamin D3) 1,000 1,000 unit PO QDAY #30 tab 06/08/18 07/25/18 Rx unit tablet mecobalamin (vitamin B12) 1,000 1,000 mcg SL QDAY #90 tab 06/11/18 07/25/18 Rx mcg disintegrating tablet,sublingual gabapentin 100 mg capsule 100 mg PO QDAY #180 cap 06/25/18 07/25/18 Rx Allergies/Adverse Reactions: Allergies Allergy/AdvReac Type Severity Reaction Status Date / Time No Known Allergies Allergy Verified 07/25/18 18:02 Review of Systems - Review of Systems All Systems: Reviewed & No Additional Complaints Except as Stated Exam - Vitals Vital Signs: Vital Signs Temperature 98.2 F Temperature Source Temporal Artery Scan Pulse Rate [Pulse Oximeter 72 Right] Pulse Rate 60 Respiratory Rate 16 Blood Pressure [Left Arm] 151/81 Blood Pressure 146/68 Pulse Ox 100 Oxygen Delivery Method Room Air Height 5 ft 2 in Weight 108 lb 6.4 oz - General General Appearance: No Acute Distress, Cooperative - Head Head Exam: Normal Inspection - Eye Eye Exam: POSITIVE: Normal Appearance - ENT ENT Exam: POSITIVE: Normal Exam - Neck Neck Exam: Normal Inspection - Respiratory Respiratory Exam: POSITIVE: Clear to Auscultation - Bilaterally - Cardiovascular Cardiovascular Exam: POSITIVE: RRR - GI/Abdominal GI/Abdominal Exam: POSITIVE: Normal Bowel Sounds, Non Tender, Non Distended, Soft, No Organomegaly - Rectal Rectal Exam: POSITIVE: Deferred - External Exam: POSITIVE: Deferred Exam: POSITIVE: Deferred - Extremities Additional Extremities Exam Details: There is no edema but there is amputation of the fifth toe on the right. - Back Back Exam: POSITIVE: Normal Inspection - Neurological Neurological Exam: POSITIVE: Alert, Oriented x 3, CN II-XII Intact, No Facial Droop, Speech Intact / Clear, Moves All Extremities Equally - Psychiatric Psychiatric Exam: POSITIVE: Normal Affect Results - Labs CBC and BMP: 07/25/18 14:07 07/25/18 14:07 - Imaging Status: Report Reviewed by Me (CT chest 1. No main or segmental pulmonary embolism. 2. There is groundglass nodularity in the right middle, right lower, and left lower lobes with no dense consolidation, pneumothorax, or pleural eff usion. This is a nonspecific finding with a broad differential that includes aspiration, atypical pneumonia, and hypersensitivity pneumonitis. Chest X ray No radiographic evidence of acute cardiopulmonary disease. CT abdomen 1. The patient is cachectic with minimal intraperitoneal fat which limits evaluation of the bowel and mesentery. There is no CT evidence of acute intra-abdominal or pelvic pathology within the limits of this exam. Enteric contrast is present in the distribution of the colon, most likely ingested during the patient's esophagram on 07/03/2018. This suggests slow transit of enteric contents.) Assessment and Plan - Patient Problems (1) Esophageal dysphagia Current Visit: No Status: Chronic Onset Date: 01/13/16 Comment: Patient will have a EGD tomorrow and PEG tube. Will Write for IV fluids. We'll consult dietitian. Code(s): R13.10 - Dysphagia, unspecified (2) Hypokalemia Current Visit: Yes Status: Acute Comment: Replace his potassium. Repeat labs in a.m. Code(s): E87.6 - Hypokalemia (3) CAD (coronary artery disease) Current Visit: No Status: Chronic Comment: I think will put him on his medication post tube insertion. Code(s): I25.10 - Atherosclerotic heart disease of [place] coronary artery without angina pectoris Qualifiers: Coronary Disease-Associated Artery/Lesion type: [place] artery [place] vs. transplanted heart: [place] heart Associated angina: without angina Qualified Code(s): I25.10 - Atherosclerotic heart disease of [place] coronary artery without angina pectoris
[2018-07-25] MEDS ORDERED: LIDOCAINE W/ SODIUM BICARB 0.5 ML SYR SUBD PRN (18:39)
[2018-07-25] MEDS ORDERED: ONDANSETRON 4 MG/2 ML VIAL IVP PRN (18:39)
[2018-07-26 05:18] LABS: BLOOD UREA NITROGEN 9 mg/dL (7-22)
[2018-07-26] MEDS ORDERED: Lactated Ringers 1,000 ML PRIMARY IV SCH (05:30)
[2018-07-26] MEDS ORDERED: PROPOFOL 10 MG/1 ML (200 MG/20 ML) VIAL IV ONE (07:19)
[2018-07-26] MEDS ORDERED: LIDOCAINE 2% VISCOUS(20 MG/1 ML) - 15 ML UD CUP PO ONE (07:19)
--- NOTE | 2018-07-26 07:31 | PDOC(PROG) ---
Date of Service: 07/26/18 Time of Service: 07:30 Interval History: Subjective Patient is denying new symptoms. Still no pain. No vomiting today. No nausea. He is scheduled for EGD and possible PEG today. Objective : Data - Labs CBC and BMP: 07/25/18 14:07 07/26/18 04:07 Objective : Exam - General General Appearance: No Acute Distress, Cooperative - Head Head Exam: Normal Inspection - Eye Eye Exam: Normal Appearance - ENT ENT Exam: Normal Exam - Neck Neck Exam: Normal Inspection - Respiratory Respiratory Exam: Clear to Auscultation - Bilaterally - Cardiovascular Cardiovascular Exam: RRR - GI/Abdominal GI/Abdominal Exam: Normal Bowel Sounds, Non Tender, Non Distended, Soft, No Organomegaly - Rectal Rectal Exam: Deferred - External Exam: Deferred Exam: Deferred - Extremities Extremities Exam: Normal Inspection - Back Back Exam: Normal Inspection - Neurological Neurological Exam: Alert, Oriented x 3, CN II-XII Intact, No Facial Droop, Speech Intact / Clear Additional Neurological Exam Details: There is left the lower leg atrophy and this is old. There is left foot drop. - Psychiatric Psychiatric Exam: Normal Affect - Integumentary Integumentary Exam: Normal Color Assessment and Plan - Patient Problems (1) Esophageal dysphagia Current Visit: No Status: Chronic Onset Date: 01/13/16 Comment: Etiology unclear he will have an EGD and possible PEG today. Code(s): R13.10 - Dysphagia, unspecified (2) Hypokalemia Current Visit: Yes Status: Acute Comment: Continue potassium replacement. Code(s): E87.6 - Hypokalemia (3) CAD (coronary artery disease) Current Visit: No Status: Chronic Comment: We'll consider restarting his medication after the PEG insertion. Code(s): I25.10 - Atherosclerotic heart disease of [place] coronary artery without angina pectoris Qualifiers: Coronary Disease-Associated Artery/Lesion type: [place] artery [place] vs. transplanted heart: [place] heart Associated angina: without angina Qualified Code(s): I25.10 - Atherosclerotic heart disease of [place] coronary artery without angina pectoris
[2018-07-26] MEDS ORDERED: Lactated Ringers 1,000 ML PRIMARY IV ONE (07:32)
[2018-07-26] MEDS ORDERED: LIDOCAINE W/ SODIUM BICARB 0.5 ML SYR ONE (07:32)
--- NOTE | 2018-07-26 08:30 | GEN.OPNOTE ---
EGD Operative Note Surgery Date: 07/26/18 Preoperative Diagnosis: Inability to eat and maintain calories for survival Postoperative Diagnosis: Same Procedure: EGD with PEG tube Surgeon: Shyam Ji MD Anesthesia Provider: Stef Morgan CRNA Anesthesia Type: Local, MAC Indications: 77-year-old gentleman for past 4 months had inability to swallow. According the barium swallow he cannot initiate the swallowing mechanism. Therefore needs a PEG tube to maintain enough calories for survival Findings: Esophagus: Olympus video EGD scope inserted into the posterior pharynx Esophagus under Visualization. GE Junction Proximal Be 40 Cm. 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 Four- Quadrant Biopsies Were Done to Rule Out Dysplasia GE Junction : 40 cm Fundus : Retroflexed on itself revealing a normal fundus Body : Body the stomach normal Prepyloric : The pyloric area denied noticing pathology Small Intestine : First second third portion of the duodenum appeared to be normal. At this point we transilluminated the the skin prepped draped sterile fashion I then infiltrated local anesthetic. Put a large bore needle through the skin into the stomach. Advance the guidewire through the needle. Grasped the guidewire and pulled the guidewire out through the oral cavity. I can't touch the PEG tube and pulled it transorally and then through the stomach and skin. Affix the peg tube in appropriate manners. Patient told procedure well the were no complications A lubricated flexible upper endoscope was inserted and passed through the esophagus and stomach into the duodenum. Endoscopy Procedures - Endoscopy Procedures Primary Endoscopy Procedure: 14352 : EGD w/PEG tube placement
--- NOTE | 2018-07-26 08:58 | CRNA.PROGR ---
Post Anesthesia Phase II - Post Anesthesia Phase II Patient Stable and Discharged To: Phase II Care Assumed By Surgeon: Ramirez Ji MD Temperature: 97.3 F Pulse Rate: 71 Respiratory Rate: 12 Blood Pressure: 100/72 Pulse Ox: 100 Total Jatin Score at Discharge: 10 Post Anesthesia Discharge Criteria Met: Yes
--- NOTE | 2018-07-26 08:58 | CRNA.PROGR ---
Anesthesia Time - Procedure/Recovery Time Start Date: 07/26/18 End Date: 07/26/18 Anesthesia : Time In: 07:50 Anesthesia : Time Out: 08:21 Anesthesia : Total Time: 31 - Total Anesthesia Time Total Anesthesia Time (minutes): 31 - Other Weight: 45.529 kg Height: 5 ft 2 in Body Mass Index (BMI): 18.3 Physical Status: P3 Anesthesia Type: MAC
[2018-07-26] MEDS ORDERED: Sodium Chloride 0.9% 1,000 ML PRIMARY IV SCH (10:15)
[2018-07-27 04:54] LABS: BLOOD UREA NITROGEN 6 mg/dL (7-22)
[2018-07-27] MEDS ORDERED: PANTOPRAZOLE 40 MG TABLET PO SCH (07:00)
[2018-07-27] MEDS ORDERED: ASPIRIN EC 81 MG TABLET PO SCH (09:00)
[2018-07-27] MEDS ORDERED: CARVEDILOL 3.125 MG TABLET PO SCH (09:00)
--- NOTE | 2018-07-27 09:12 | OTI REPORT ---
Thank you for the referral of Jony Borjas. He was seen on 07/26/18 for an occupational therapy inpatient evaluation. SUBJECTIVE: The patient is a 77-year-old male who is being seen secondary to having a PEG tube placement. The patient reports that he decided to finally give in and get it. He was having a lot of difficulty with his swallowing; he would cough and choke on all the food that he was trying to eat and swallow. The patient reports that he still wants to eat some food, but he doesn't want the thickened type foods. Per a previous modified barium swallow study, the patient was aspirating on all foods and liquids except for puree and honey thickened; however, he has very severe pharyngeal pooling and difficulty with clearance. PAST MEDICAL HISTORY: Past medical history can be found in the patient's medical record. OBJECTIVE FINDINGS: The patient was sitting in bed upon the therapist's arrival. He had a lot of questions about the PEG tube and also about feeding. The therapist highly encouraged the patient to try not to eat. Obviously he does have some persistence about what he wants to do and he reports he wants to eat. The safest thing is for the patient not to eat. He still cannot clear, mainly through the UES and has a lot of regurgitation and throws up with food and liquid input. The therapist reiterated the patient should not eat and to use PEG tube only. We did discuss sucking on some ice chips and spitting them out if his mouth gets dry. Cognitively the patient reiterates things over and over. It is a question whether or not he understands everything or that he is in denial that he is not supposed to eat. ASSESSMENT: Our main goal for the patient is to receive PEG tube education from nursing and have the patient become independent with feeding himself through the PEG tube and to really understand the grasp of this. We would like the tool and die machinist to come in and complete PEG tube feedings and nutrition education as well. It is highly encouraged that the patient not eat. If he does eat, the main recommendation would be to stick to a moderate puree diet with honey thickened liquids. He will still aspirate on that but less than the other types of foods and liquids. The patient is aware of his precautions. TREATMENT PLAN: Patient will be seen on a PRN basis only for home needs and to consult with him about nutritional supplements. INITIAL TREATMENT: Treatment today consisted of the inpatient evaluation only. ARTHUR
--- NOTE | 2018-07-27 09:45 | PTI REPORT ---
Thank you for the referral of Jony Borjas. He was seen on 07/26/18 for an inpatient evaluation secondary to weakness. SUBJECTIVE: The patient is a 77-year-old male who stated that he presented to his doctor's office yesterday and asked to be hospitalized due to a recent 45 pound weight loss in the last four months. The patient has been having issues with swallowing over the last 10 years and has progressively gotten worse. He states that he has been losing a lot of weight and feels very low on energy. Per patient report, they did put a PEG tube in earlier today and he did have his first tube feeding at 1:00. The patient reports generalized weakness due to weight loss. He states that he also has been having multiple falls over the last year. He states it has been about 1-2 falls a week or possibly more and reports 5 falls in the last week alone. He states that he just loses his balance due to decreased energy and weakness but he denies any major injuries with his falls. The patient states that right now he is not using an assistive device for ambulation but is looking into getting a four wheeled walker. The patient lives alone at [facility]. He states that he does well with ADLs and that [place]. The patient did get confused during parts of our evaluation and the therapist is unsure exactly whether or not subjective information is correct. The patient does report previous history of bypass, shoulder surgery, and a fracture of his pelvis at age 37 which has affected his left ankle mobility and atrophied the left lower extremity past the knee. PAST MEDICAL HISTORY: Past medical history can be found in the patient's medical record. OBJECTIVE FINDINGS: General observations: The patient was alert and oriented to setting upon PT arrival. Bed mobility: The patient is able to independently transfer from supine to seated edge of bed. The patient demonstrates good seated edge of bed balance. The patient was able to transfer back into bed independently. Strength: Manual muscle test was performed in a seated position. The patient demonstrates 4/5 bilateral lower extremity strength testing. He is unable to do active dorsiflexion on the left lower extremity which has been an issue over the past approximately 40 years. Just by looking at the patient, he does have a couple scrapes on his bilateral knees which he states is from falls. Nothing is open at this time, there are just scabs. He does have noticeable atrophy of the calf on the left greater than the right side. Transfers: The patient was able to perform 5 sit to stands in 14 seconds, utilizing hands for standing. He demonstrates fair standing balance and does better with hand hold assist on the walker. The patient refused any further exercises at this time. ASSESSMENT: The patient has fair rehab potential secondary to his age and medical history. Problem List: Generalized weakness Deconditioning Short-Term Goals: To be met by discharge from inpatient: Patient will be able to ambulate at least 150 feet safely and independently with least restrictive assistive device in order to return back home. Patient will be able to ambulate up and down stairs safely and independently with least restrictive assistive device. Patient will be able to tolerate 30 minutes of physical therapy activity for general strengthening of upper and lower extremities. Long-Term Goals: To be met following discharge from inpatient: Patient may be seen by outpatient physical therapy in order to improve his overall stamina and strength to improve his safety at home. TREATMENT PLAN: Patient will be seen B.I.D during the week and one time per day over the weekend as an inpatient to address the above goals and objectives. INITIAL TREATMENT: Treatment today consisted of the initial evaluation followed by one unit of functional activity. The patient refused any further exercises at this time. He states he just wants to go home tomorrow and he is unsure why he needs to participate with therapy despite discussion with patient on the benefits of therapy. We will attempt some walking activity tomorrow to see how the patient does. He will most likely benefit from an assistive device to his history of multiple falls and overall balance. ARTHUR
[2018-07-27 10:20] VITALS: BP 110/51; RESP 16; TEMP 96.6
[2018-07-27 10:43] VITALS: O2SAT 99
--- NOTE | 2018-07-27 11:27 | DCSUMMARY ---
Hospitalization Summary Admit Date: 07/25/2018 Discharge Date: 07/27/18 Hospital Course: Discharge instruction 1. Oropharyngeal dysphagia progressive unclear etiology, status post PEG tube placement 2. Coronary artery disease with previous CABG in 2003 3. History of hypertension 4. History of pacemaker insertion 5. History of compression fractures 6. History of esophageal dilatation before 7. History of Mckenzie esophagus 8. History of left leg atrophy and weakness from previous back injury 9. History of cholecystectomy 10. Hypokalemia, resolved Hospital course This is a 77 years old male with medical history significant for history of previous CABG in 2003, history of previous pacemaker insertion, hypertension who is been having problem with swallowing for years according to him but progressively got worse the last 4 month he lost like 45 pounds, he said he is been having problems swallowing solid food and even liquid. He had multiple testing with no clear reasoning for his swallowing difficulty. He did have on July 03 a swallow evaluation in which showed the patient was unable to swallow thin barium without aspiration multiple times. Patient reported that he vomits when he is swallowing also. On the day of admission he went to see Dr. Parish from there he was sent to the ER. In the ER he had a CT of the chest and CT of the abdomen which showed no new findings. Case was discussed with the Dr. Ji who suggested admission and patient had EGD and PEG tube the next day. After talking to the patient he agreed to take nothing by mouth and everything including his pills will go through the tube. The reason for his oropharyngeal dysphagia is unclear. Whether this is a beginning of bulbar palsy as a result of underlying ALS, time would tell. I did not see evidence of fasciculation though, there was no evidence of tongue fasciculation or atrophy, his uvular movement seem to be normal. He had an atrophy of the left leg but this is from an old injury. His eye movements both in the horizontal and vertical planes seemed to be normal which argues against progressive supranuclear palsy. it is not clear whether he had a previous stroke in the bulbar area. The fact that this is not of sudden onset and been going on for years according to him suggest that this is more degenerative problem rather than an acute ischemic event. Patient managed to do his own feeding, so the patient will be discharge home and follow-up with his primary. Discharge instruction Diet nothing by mouth nutrition through PEG tube Medications Current Medication(s) Medication Instructions Recorded Confirmed Type carvedilol 6.25 mg tablet 6.25 mg PO BID #180 tab 05/29/18 07/25/18 Rx esomeprazole magnesium 20 mg 40 mg PO QDAY #180 cap 05/29/18 07/25/18 Rx capsule,delayed release aspirin 81 mg tablet,delayed 81 mg PO QDAY tab 05/31/18 07/25/18 History release cholecalciferol (vitamin D3) 1,000 1,000 unit PO QDAY #30 tab 06/08/18 07/25/18 Rx unit tablet mecobalamin (vitamin B12) 1,000 1,000 mcg SL QDAY #90 tab 06/11/18 07/25/18 Rx mcg disintegrating tablet,sublingual Simvastatin 20 mg PO BEDTIME 07/26/18 07/26/18 History Follow-up with PCP in 1-2 weeks Condition at discharge was stable for discharge Exam - Vitals Vital Signs: Vital Signs Temperature 96.6 F Temperature Source Oral Pulse Rate [Pulse Oximeter 70 Right] Pulse Rate 71 Respiratory Rate 16 Blood Pressure [Right Arm] 140/53 Blood Pressure [Left Arm] 110/51 Blood Pressure 100/72 Pulse Ox 99 Oxygen Flow Rate Room Air Oxygen Delivery Method Room Air Height 5 ft 2 in Weight 100 lb 6 oz - General General Appearance: No Acute Distress, Thin - Head Head Exam: Normal Inspection - Eye Eye Exam: POSITIVE: Normal Appearance - ENT ENT Exam: POSITIVE: Normal Exam - Neck Neck Exam: Normal Inspection - Respiratory Respiratory Exam: POSITIVE: Clear to Auscultation - Bilaterally - Cardiovascular Cardiovascular Exam: POSITIVE: RRR - GI/Abdominal GI/Abdominal Exam: POSITIVE: Normal Bowel Sounds, Non Tender, Non Distended, Soft, No Organomegaly - Rectal Rectal Exam: POSITIVE: Deferred - External Exam: POSITIVE: Deferred - Extremities Extremities Exam: POSITIVE: Normal Inspection - Back Back Exam: POSITIVE: Normal Inspection - Neurological Neurological Exam: POSITIVE: Alert, Oriented x 3, CN II-XII Intact, No Facial Droop, Speech Intact / Clear Additional Neurological Exam Details: There is atrophy of the left leg which is old. Both present on vertical eye movements seem to be normal. No evidence of fasciculation in the legs or the tongue no atrophy. - Psychiatric Psychiatric Exam: POSITIVE: Normal Affect - Integumentary Integumentary Exam: POSITIVE: Normal Color Patient Problems - Patient Problem List (1) Esophageal dysphagia Current Visit: No Status: Chronic Onset Date: 01/13/16 Code(s): R13.10 - Dysphagia, unspecified Category: Medical (2) Hypokalemia Current Visit: Yes Status: Acute Code(s): E87.6 - Hypokalemia Category: Medical (3) CAD (coronary artery disease) Current Visit: No Status: Chronic Comment: Post 5 vessel bypass 2003 with pacemaker implant 2016. Denies exertional chest pain but does have HAYS with limited exercise related to frequent falls. Code(s): I25.10 - Atherosclerotic heart disease of [place] coronary artery without angina pectoris Qualifiers: Coronary Disease-Associated Artery/Lesion type: [place] artery [place] vs. transplanted heart: [place] heart Associated angina: without angina Qualified Code(s): I25.10 - Atherosclerotic heart disease of [place] coronary artery without angina pectoris Category: Medical
--- NOTE | 2018-07-27 12:03 | PT.PROG ---
Progress Note Progress Note: Patient refused to try the front wheeled walker and stated he only wants a 4 wheeled walker. He reported that he is planning to go to [facility] to get a 4 wheeled walker.
[2018-07-27] MEDS ORDERED: Simvastatin Tab 20 MG TAB PO SCH (21:00)
== END 2018-07-27 11:55 | disposition home or self-care (01) | DRG 392 ==
LOC: ER 13:50 → MED/SURG 17:54
PROVIDERS: ADMIT Internal Medicine; ATTEND Internal Medicine